=== PATIENT | female | born 1970 | race Caucasian/White ===

== ENCOUNTER 2019-04-22 11:40 | Outpatient (RCR) | payer MEDICAID, SELFPAY ==
--- NOTE | 2019-04-22 12:53 | HP.PTEVAL ---
Patient's Visit Information MACARIO LOMBARDI is a 49 year old F referred to Physical Therapy by Marylu York MD with a diagnosis of Balance issues.. Date of Evaluation: 04/22/19 Physical Therapist: Murali Hidalgo DPT, OCS, CSCS - Visit Plan Frequency: 2x /Week Duration: 4-6 Weeks Plan: 2x/week for 4-6 weeks for... 1. stretch HS, gastroc, quads and progress to I HEP. 2. Strength to all LE muscle s with motor control coordination challenges. Progress to HEP. 3. Gait and balance exercises emphasizing safety. Emphasize use of walker for safety. Monitor doctors testing for reason for her deficits. POSTURE. Etiology of her problems is unknown at this point, neuro vs muscular problems. - Subjective Findings: Legs and back not feeling good. Have not since was a kid. Legs turn to [place]. She went to [facility] on her own. Does not have family doctor. Has had testing adn treatment over the years for legs turn to jello and legs burn up to back. Has had back surgery 5 yrs ago describing fusion. It may have heped a little bit. Pain is in different area into shoulder adn LB. Pain is 10/10 if vaccuming as she has to take care of a numbe rof people at home including a chema GLORIA. Fell out of tub last weekend and that hurt her back. Legs would not doing what she wanted them to do. No pattern to her legs not doing what she wants, usually if she stands suddenly or is up too long. Uses walker much of time. Uses it away from home which she does not do much. Needs cart at grocery store. Usesit at home. Has one with wheels but doesnt feel safe using it out and about. Sleep is not great but that is normal for her. This hurts her back. Sleeps in hopsital bed slightly elevated. Not employed. Takes care of family. Cleans house alot and needs to take frequent breaks. as small house. Basic ADLs are OK other than obvious balance /LE problems. helps with shoes some times. Tingling in legs and toes intermittent without pattern. - Pain LBP Pain Intensity (Out of 10): 7 Pain Intensity Range: 0, 10 Comment: very few good days - Objective Pt ambulate with standard walker mod I, small steps adn slow with poor confidence but Mod I. Does not like wh walker. Without walker can do small 6 inch steps withotu a lot of weight shift adn really dysfucntional. Recommended 100% compliance with walker. Trasnfer with UE out of chair. Steps not toested today. Very painful with bed transfer today but can do it slow and I. UE AROM WFL and reciprocal lap tap is OK. LE aROM is ppor, -50 90/90 test HS flex. Pain in HS and gastroc with stretch of that area, -10 Active and neutral passive DF B. reflexes 1/3 patella and 0/3 achilles B. No clonus. Poor motor control in ankles and knees with hard contractions initially but then it gives in HS, quads, DF. DF strength 3-, Unable to heel raise, inv and ev 3+. knee felxion strength is 3- adn quads 3- as she gets a firm contraction but cannot hold it. 3/5 hip abduction and extension strength. 4- adduction. Again, not great motor control with the hip movements and contractions. Sensation seems diminished to gross light touch in the LE distally past 1/[address] down shins. Poor mtoor control on heel to ramos test adn reciprocal toe tapping. able to SLS only for a few seconds but noticable ankle corrections, poor confidence in LE holding her up seem to be limiting factor. - Balance Scores Functional Gait Assessment Score: 7 % Disability: 76.6700 - Goals Goal 1:: Patient I in appropriate HEP for LE muscle contractions, weight shifts and balance without increased pain. Goal Time Frame: 2-4 Weeks Goal 2:: Patient feel 25% improved in control and confidence of ambulatig with LE Goal Time Frame: 4-6 Weeks Goal 3:: FGA at to diminish fall risk. Goal Time Frame: 4-6 Weeks - Rehabilitation Potential Physical Therapy Diagnosis: Motor issues in LE effecting balance and mobility. Rehabilitation Potential: Questionable - Anticipated Interventions Patient/Client Instruction: Educate patient on: Condition, Plan of Care For the Purpose of:: To improve muscle performance and motor function Therapeutic Exercise to Include: Strength training, Postural training, Flexibilty training, Gait and locomotor training, Passive ROM, Active ROM For the Purpose of:: To improve muscle performance and motor function, To increase tolerance to activity/condition/position Thank you for the opportunity to evaluate your patient. For Medicare and Medicare HMO plans, please review the plan of care and approve it. It will need to be FAXED BACK to us at [phone] for Medicare purposes. For Medicare only, by signing this I certify the plan of care. Please let me know if there are questions or concerns regarding this plan of care. Physician Signature: Date:
--- NOTE | 2019-06-13 16:48 | HP.PT.NRP ---
HP - Discharge Summary (1) - Patient Information MACARIO LOMBARDI was seen in my office for initial evaluation on 04/22/19. The following Plan of Care was established for this patient: Initial Frequency: 2x /Week Initial Duration: 4-6 Weeks - Anticipated Interventions Patient/Client Instruction: Educate patient on: Condition, Plan of Care For the Purpose of:: To improve muscle performance and motor function Therapeutic Exercise to Include: Strength training, Postural training, Flexibilty training, Gait and locomotor training, Passive ROM, Active ROM For the Purpose of:: To improve muscle performance and motor function, To increase tolerance to activity/condition/position This patient was last seen in our office 04/22/19. Pertinent comments regarding their Physical therapy will appear below: Pt seen for initial evaluation adn POC established. She has not scheduled or attended any visits and it has been over 50 days, I will discotninue due to nonattendance. At this point I will be discontinuing this patient from physical therapy. I would be happy to see this patient again in the future if found appropriate by the physician. Thank you! Murali Hidalgo, DPT, OCS, CSCS
== END 2019-04-22 19:00 | disposition home or self-care (01) ==
LOC: PT 11:40
PROVIDERS: Referring Provider Psychiatry & Neurology Neurology; Visit Provider Psychiatry & Neurology Neurology
DX: R26.89 Other abnormalities of gait and mobility (principal)
CPT/HCPCS: 97162

== ENCOUNTER 2021-08-31 10:38 | Outpatient (CLI) | payer MEDICAID, SELFPAY ==
--- NOTE | 2021-08-31 10:30 | MRI_ITS ---
Abdominal MRI and MRCP 08/31/2021 11:10 AM COMPARISON: None CLINICAL HISTORY: ACUTE RECURRENT PANCREATITIS TECHNIQUE: Multiplanar T1 and T2 weighted, diffusion and dynamic post-gadolinium images were obtained through the abdomen. In addition, MRCP was performed. 3-D postprocessing images were reviewed. FINDINGS: Liver: Unremarkable Gallbladder: Surgically absent. Bile Ducts: Dilatation of the common bile duct, common hepatic duct and central intrahepatic biliary ducts, most likely due to reservoir effect status post cholecystectomy.. Pancreas: Unremarkable. No dilatation of the main pancreatic duct. Spleen: Unremarkable Adrenal Glands: Unremarkable Kidneys: Scattered T2 hyperintense renal cysts. GI Tract: Unremarkable Lymphadenopathy: Absent Ascites: Absent Bones: No suspicious lesions MRI/MRCP Abdomen without Contrast IMPRESSION: Unremarkable MRI and MRCP of the abdomen. Electronically Signed: Avila Matson MD at 18:53 EST ,
[2021-08-31 11:19] LABS: Absolute Lymphocyte Count 2.83 X10^3/uL (0.83-4.51); Absolute Neutrophil Count 3.6 X10^3/uL (2.0-7.7); Basophil# 0.02 X10^3/uL; Basophil% 0.3 % (0-1); Eosinophils% 1.5 % (0-5); Hematocrit 40.4 % (37-47); Hemoglobin 14.1 g/dL (12.0-15.0); Lymphocyte # 2.83 X10^3/ul (0.83-4.51); Lymphocyte % 41.2 % (19-41); Mean Corp Hgb Conc 34.9 g/dL (32-36); Mean Corpuscular Hgb 34.2 pg (27.0-32.0); Mean Corpuscular Volume 98.1 fL (81-99); Mean Platelet Vol. 8.8 fl (6.2-12.0); Monocyte# 0.28 X10^3/uL; Monocyte% 4.1 % (0-10); NRBC Flagged by Analyzer 0 % (0-5); Neutrophil # 3.62 X10^3/uL (2.7-7.7); Neutrophil % 52.6 % (47-70); Platelet Count 410 K/mm3 (150-450); RBC Distribution Width CV 13.7 % (11.6-14.6); RBC Distribution Width SD 50.1 fl (35.1-43.9); Red Blood Count 4.12 M/mm3 (4.2-5.4); White Blood Count 6.9 K/mm3 (4.4-11.0)
[2021-08-31 11:46] LABS: Amylase 31 U/L (25-115); CRP < 2.90 mg/L (0.0-3.0); Lipase 29 U/L (73-393)
[2021-09-01 16:11] LABS: Anti-Centromere B Ab <0.2 AI (0.0-0.9); Anti-Chromatin <0.2 AI (0.0-0.9); Anti-Jo <0.2 AI (0.0-0.9); Anti-Scleroderma-70 AB <0.2 AI (0.0-0.9); RNP Ab <0.2 AI (0.0-0.9); SJOGREN'S Anti-SS-A test < 0.2 AI (0.0-0.9); SJOGREN'S Anti-SS-B test < 0.2 AI (0.0-0.9); Smith Ab <0.2 AI (0.0-0.9)
[2021-09-01 18:13] LABS: Anti-dsDNA Ab 2 IU/mL (0-9)
[2021-09-04 06:08] LABS: Albumin 3.6 g/dL (2.9-4.4); Alpha-1-Globulins 0.2 g/dL (0.0-0.4); Alpha-2-Globulins 1.1 g/dL (0.4-1.0); Cytoplasmic Ab (C-ANCA) <1:20 titer (Neg:<1:20); Endomysial Antibody IgA Negative (Negative); Gamma Globulin 0.9 g/dL (0.4-1.8); IgG, Quant 854 mg/dL (586-1602); Immunoglobulin A 221 mg/dL (87-352); Immunoglobulin G, Subclass 1 442 mg/dL (248-810); Immunoglobulin G, Subclass 2 192 mg/dL (130-555); Immunoglobulin G, Subclass 3 102 mg/dL (15-102); Immunoglobulin G, Subclass 4 85 mg/dL (2-96); Immunoglobulin M 71 mg/dL (26-217); PROEL- TOTAL PROTEIN 6.9 g/dL (6.0-8.5)
[2021-09-04 09:49] LABS: Immunoglobulin E 102 IU/mL (6-495); Perinuclear Ab (P-ANCA) <1:20 titer (Neg:<1:20); t-Transglutaminase IgA <2 U/mL (0-3)
== END 2021-08-31 23:59 | disposition home or self-care (01) ==
LOC: MRI 10:39
PROVIDERS: PCP Nurse Practitioner Family; Referring Provider Internal Medicine Gastroenterology; Visit Provider Internal Medicine Gastroenterology
DX: K85.90 Acute pancreatitis without necrosis or infection, unspecified (principal)
CPT/HCPCS: 36415; 74181; 82150; 82784; 82785; 82787; 83516; 83690; 84165; 85025; 86140; 86225; 86235; 86255; 86256; 86334

== ENCOUNTER 2021-09-10 09:02 | Outpatient (CLI) | payer MEDICAID, SELFPAY ==
--- NOTE | 2021-09-10 09:04 | RAD_ITS ---
PROCEDURE: Upper GI with Small Bowel Follow Through DATE OF EXAMINATION: 09/10/2021.. INDICATION: Female, 51 years old. History of gastroparesis. FLUOROSCOPY TIME (if supplied): (0:45) minutes/seconds. 18 images were obtained. TECHNIQUE: Radiographic and fluoroscopic images of the distal esophagus, stomach, and entire small intestine were obtained following the oral ingestion of barium. COMPARISON: None. FINDINGS: The vessel liner film of the abdomen demonstrates a normal bowel gas pattern. Large amount of fecal material is seen throughout the colon. There are no abnormal calcifications or organomegaly demonstrated. The patient is status post laminectomy and fusion at the L5-S1 level. The esophagus is unremarkable. No evidence of obstruction. No gastroesophageal reflux is seen. The stomach and duodenum are unremarkable. A single contrast small bowel follow through exam demonstrates the small bowel to have no evidence for stricture, ulceration or mass. The transit time is normal at 60 minutes. RAD/Upper GI/w Small Bowel IMPRESSION: 1. Normal air contrast contrast upper GI and small bowel follow-through exam. Electronically Signed: Sunday Yen MD at 8:26 EST ,
== END 2021-09-10 23:59 | disposition home or self-care (01) ==
LOC: RAD 09:03
PROVIDERS: PCP Nurse Practitioner Family; Referring Provider Internal Medicine Gastroenterology; Visit Provider Internal Medicine Gastroenterology
DX: K31.84 Gastroparesis (principal); K85.90 Acute pancreatitis without necrosis or infection, unspecified
CPT/HCPCS: 74246; 74248

== ENCOUNTER 2021-09-21 09:51 | Outpatient (CLI) | payer MEDICAID, SELFPAY ==
--- NOTE | 2021-09-21 09:57 | NM_ITS ---
CLINICAL: 51-year-old female with reported history of abdominal pain and clinical gastroparesis. SEMI-SOLID PHASE 99m Tc SULFUR COLLOID GASTRIC EMPTYING STUDY COMPARISON: Upper gastrointestinal series with small bowel follow-through report 09/10/2021, MRI of the abdomen report 08/31/2021 FINDINGS: The patient was administered 1.1 mCi of 99m Tc sulfur colloid mixed with oatmeal and consumed per os. Image acquisitions in the anterior-posterior projections were obtained for a total of 60 minutes. There is prompt visualization of the stomach, with no gastroesophageal reflux identified. Minimal emptying is defined with the T ? emptying not calculable, (Normal: 12-56 minutes). There is 10% emptying noted at 60 minutes following meal completion. NM/Gastric Emptying Study IMPRESSION: 1. ABNORMAL 99m Tc sulfur colloid semi-solid phase (oatmeal) gastric emptying imaging examination. A. There is severe delayed semi-solid phase gastric emptying compared to normal controls. (Lizeth et al, J Nucl Med Tech 38: 186, 2010). Electronically Signed: Geoffrey Worrell DO at 7:41 EDT ,
== END 2021-09-21 23:59 | disposition home or self-care (01) ==
LOC: NM 09:52
PROVIDERS: PCP Nurse Practitioner Family; Referring Provider Internal Medicine Gastroenterology; Visit Provider Internal Medicine Gastroenterology
DX: K31.84 Gastroparesis (principal); K85.90 Acute pancreatitis without necrosis or infection, unspecified
CPT/HCPCS: 78264; A9541

== ENCOUNTER 2021-09-24 10:14 | Day surgery (SDC) | payer MEDICAID, SELFPAY ==
[2021-09-24] VITALS (7 sets, daily range): BP systolic 93–105; BP diastolic 38–75; PULSE 88–105; RESP 16–18; TEMP 36.1–37.4; O2SAT 93–99; BMI 22.8
[2021-09-24] MEDS: Lactated Ringers 1,000 ML 15 ML IV (10:53)
--- NOTE | 2021-09-24 11:20 | RAD_ITS ---
STUDY: FLUOROSCOPIC ERCP biliary ductal system REASON FOR EXAM: Female, 51 years old. PAIN RADIATION DOSAGE: Not provided. Please see intraoperative report. FLUOROSCOPY TIME (if supplied): ( 2 minutes 56 seconds ) TECHNIQUE: 14 fluoroscopic images from intraoperative ERCP were obtained and submitted for interpretation. COMPARISON: Gallbladder MRI from 08/31/2021 FINDINGS: 14 fluoroscopic images from intraoperative ERCP submitted for interpretation. A catheter over guidewire appears to have been placed. Contrast is injected demonstrating dilated extra and intrahepatic ductal system. There are a few filling defects within the common bile duct which could relate to air bubbles or stones. A biliary stent is then placed and appears to be appropriate position. RAD/ERCP Biliary Only IMPRESSION: As above. Please see intraoperative report for further details. Electronically Signed: Pedro Bourne, at 13:28 EDT ,
--- NOTE | 2021-09-24 11:31 | HP.PCM_ITS ---
History and Physical Date of Admission: 09/24/21 This51 F who presents to the office today for evaluation of abdominal pain. she presented to [place] ED for evaluation of back and abdomen pain. Found she has delayed gastric emptying and multiple pancreatic cysts. She was transferred to [place] for admission; EGD performed for possible blockage without finding of blockage, just delayed emptying. Presented to [place] ED again 08.09.21 for back and abdomen symptoms. NG tube placed for decompression/drainage ?one full suction cup?. Reports that typical meals are very small and infrequent during the day. She drinks high protein Boost as a supplement. Reports weight loss in the last year. Regularly feels full and bloated with occasional constipation (stool softeners taken with mixed results). US RUQ 07.11.21 found common duct dilated up to 1.2cm. Otherwise without remark. CTA abd/pel 08.09.21 found CBD measuring 1.5cm. Stomach distended and fluid filled. 08.09.21 AST 299, ALT 135, alk phos 286, albumin 2.5 History of cholecystectomy. ROS Const Constitutional: No anorexia, fatigue, fever(s), weight change or sleep problems Eyes Eyes: No change in vision ENT ENT: No abnormal hearing, difficulty swallowing, mouth lesions, tongue swelling or throat swelling Resp Respiratory: No cough or shortness of breath Cardio Cardiology: No chest pain at rest, chest pain with exertion, shortness of breath or dyspnea on exertion Gastro GI: No difficulty swallowing Genitourinary-Female: No difficulty urinating or burning urination Musc Musculoskeletal: No joint pain, joint swelling, muscle weakness or decreased muscle mass Skin Skin: No hair loss in leg, yellowing of the eye, itchy eyes, rash, skin ulcer or skin swelling Neuro Neurology: No abnormal hearing, abnormal movements, confusion, unsteady gait/balance or memory loss Psych Psychiatric: No anxiety, No confusion and No memory loss Endo Endocrine: No fatigue or weight change Aller/Imm Allergy/Immunologic: No itchy eyes, throat swelling or tongue swelling Tank/Lymp Hematologic/Lymphatic: No easy bleeding, easy bruising or enlarged lymph nodes Exam Const General: cooperative and comfortable Nutritional Appearance: average body habitus and well nourished HENMT Head: normal to inspection Ears: hearing grossly normal bilaterally Nose: external nose normal Face and sinus: normal facial exam Mouth: oral mucosae normal Throat: posterior oropharynx normal Eyes General: appearance normal, both eyes and all related structures Neck Neck: normal visual inspection Chest Chest palpation & inspection: normal inspection of the chest and normal palpation of entire chest wall Resp Effort & Inspection: normal respiratory effort Auscultation: Bilateral: Clear to Auscultation Cardio Palpation: normal PMI Rate: regular rate Rhythm: regular rhythm GI Inspection: normal to inspection Auscultation: normal bowel sounds Percussion: normal to percussion Palpation: no hepatosplenomegaly Skin General: no rashes or lesions noted Neuro General: patient alert Extrem General: normal to inspection Psych Affect: normal affect Assessment and Plan Assessment and Plan (1) Pancreatitis: Status: Acute Orders: Orders: CRP 08/19/21 CBC W/Diff, Automated 08/19/21 ANCA 08/19/21 Celiac Disease Profile 08/19/21 IgG Subclasses 08/19/21 Immunoglobulin A 08/19/21 Immunoglobulin E 08/19/21 Immunoglobulin G 08/19/21 Immunoglobulin M 08/19/21 REJI + Protein Elect, Serum 08/19/21 Miscellaneous Lab Procedure 08/19/21 Amylase 08/19/21 Lipase 08/19/21 MRCP Abdomen without Contrast 08/19/21 Gastric Emptying Study 08/19/21 Upper GI/w Small Bowel 08/19/21 Plan - Dr. Ferguson Friend, DO: She should undergo an MRCP and ERCP for evaluation of her hepatobiliary system. I cannot tell if this is stasis in the duodenum that is causing a gastric outlet obstruction, pancreatitis and increased liver function test. We will also get a biochemical work-up to look for diseases such as autoimmune pancreatitis. We may need is crystal study to see if she is producing crystals in the common bile duct and would benefit from a sphincterotomy. We will check an amylase lipase. We will also get a gastric emptying study and an upper GI with small bowel follow-through. I will give her low-dose Reglan therapy. If she has improvement with the Reglan therapy we may not need the gastric emptying study. (2) Gastroparesis: Status: Acute Orders: Orders: Gastric Emptying Study 08/19/21 Upper GI/w Small Bowel 08/19/21 Plan Details Other Medications: New: metoclopramide HCl (Reglan) administer 30 minutes before meals 5 mg PO .qid 30 days 120 tabs 0RF I have re-examined the patient. There are no clinical changes since date of exam.
--- NOTE | 2021-09-24 12:21 | OP.ERCP_ITS ---
Patient Name: Flory Romano Procedure Date: 09/24/2021 11:27 AM Date of : 1970 Age: 51 Procedure: ERCP Indications: Common bile duct stone(s), Unexplained acute pancreatitis Providers: Marty Morel DO Medicines: General Anesthesia Patient Profile: This is a 51 year old female. Refer to note in patient chart for documentation of history and physical. Patient has symptoms of acute right upper quadrant abdominal pain and chronic epigastric abdominal pain. This patient has no history of previous ERCP. Complications: No immediate complications. Procedure: Pre-Anesthesia Assessment: - Prior to the procedure, a History and Physical was performed, and patient medications and allergies were reviewed. The patient is competent. The risks and benefits of the procedure and the sedation options and risks were discussed with the patient. All questions were answered and informed consent was obtained. Patient identification and proposed procedure were verified by the physician in the pre-procedure area. Mental Status Examination: alert and oriented. Airway Examination: normal oropharyngeal airway and neck mobility. Respiratory Examination: clear to auscultation. CV Examination: normal. Prophylactic Antibiotics: The patient does not require prophylactic antibiotics. Prior Anticoagulants: The patient has taken no previous anticoagulant or antiplatelet agents. ASA Grade Assessment: II - A patient with mild systemic disease. After reviewing the risks and benefits, the patient was deemed in satisfactory condition to undergo the procedure. The anesthesia plan was to use moderate sedation / analgesia (conscious sedation). Immediately prior to administration of medications, the patient was re-assessed for adequacy to receive sedatives. The heart rate, respiratory rate, oxygen saturations, blood pressure, adequacy of pulmonary ventilation, and response to care were monitored throughout the procedure. The physical status of the patient was re-assessed after the procedure. After obtaining informed consent, the scope was passed under direct vision. Throughout the procedure, the patient's blood pressure, pulse, and oxygen saturations were monitored continuously. The duodenoscope was introduced through the mouth, and advanced to the duodenum and used to inject contrast into the bile duct. The ERCP was accomplished without difficulty. The patient tolerated the procedure well. Moderate Sedation: Moderate (conscious) sedation was personally administered by an anesthesia professional. The following parameters were monitored: oxygen saturation, heart rate, blood pressure, and response to care. Total physician intraservice time was 15 minutes. Scope In: 11:42:03 AM Scope Out: 12:06:00 PM Total Procedure Duration Time 0 hours 23 minutes 57 seconds Findings: The cavalry scout film was normal. The esophagus was successfully intubated under direct vision. The scope was advanced to a normal major papilla in the descending duodenum without detailed examination of the pharynx, larynx and associated structures, and upper GI tract. The upper GI tract was grossly normal. The bile duct was deeply cannulated with the short-nosed traction sphincterotome. Contrast was injected. I personally interpreted the bile duct images. There was brisk flow of contrast through the ducts. Image quality was adequate. Contrast extended to the entire biliary tree. Opacification of the main bile duct was successful. The maximum diameter of the ducts was 10 mm. The lower third of the main bile duct contained two stones, the largest of which was 5 mm in diameter. The main bile duct was diffusely dilated, uncertain significance. The largest diameter was 10 mm. A straight Roadrunner wire was passed into the biliary tree. A 5 mm biliary sphincterotomy was made with a traction (standard) sphincterotome using ERBE electrocautery. There was no post-sphincterotomy bleeding. The biliary tree was swept with a 15 mm balloon starting at the bifurcation. Sludge was swept from the duct. All stones were removed. Dilation of the common bile duct with a 6-7-8 mm balloon dilator was successful. One 10 Fr by 7 cm temporary stent with two external flaps and two internal flaps was placed 5 cm into the common bile duct. Bile flowed through the stent. The stent was in good position. The biliary tree was swept with a 15 mm balloon starting at the bifurcation. Debris was swept from the duct. Impression: - The entire main bile duct was dilated, uncertain significance. - Choledocholithiasis was found. Complete removal was accomplished by biliary sphincterotomy and balloon extraction. - A biliary sphincterotomy was performed. - The biliary tree was swept. Procedure Code(s): --- Professional --- 40935, Endoscopic retrograde cholangiopancreatography (ERCP); with placement of endoscopic stent into biliary or pancreatic duct, including pre- and post-dilation and guide wire passage, when performed, including sphincterotomy, when performed, each stent [id number], Endoscopic retrograde cholangiopancreatography (ERCP); with removal of calculi/debris from biliary/pancreatic duct(s) 04867, Endoscopic catheterization of the biliary ductal system, radiological supervision and interpretation CPT copyright 2017 [employer]. All rights reserved. The codes documented in this report are preliminary and upon deputy harbormaster review may be revised to meet current compliance requirements. Marty Morel DO 09/24/2021 12:20:03 PM This report has been signed electronically. Number of Addenda: 0 Note Initiated On: 09/24/2021 11:27 AM
--- NOTE | 2021-09-24 12:21 | OP.CCLET_ITS ---
09/24/2021 Kelley Vanessa Re : ERCP procedure for Flory Romano Dear Rusty This procedure was performed on Friday, September 24, 2021. My impressions and recommendations are as follows: Impressions : - The entire main bile duct was dilated, uncertain significance. - Choledocholithiasis was found. Complete removal was accomplished by biliary sphincterotomy and balloon extraction. - A biliary sphincterotomy was performed. - The biliary tree was swept. Recommendations : My findings are described in the full procedure note, which is enclosed. If I can be of further assistance, please feel free to contact me at . Sincerely, Marty Morel, 09/24/2021 12:20:03 PM This report has been signed electronically.
== END 2021-09-24 23:59 | disposition home or self-care (01) ==
LOC: EN 10:15 → AC 10:17
PROVIDERS: PCP Nurse Practitioner Family; Referring Provider Nurse Practitioner Family; Visit Provider Internal Medicine Gastroenterology
PROC: (CPT 43260; principal; 2021-09-24 11:00)
DX: K80.50 Calculus of bile duct without cholangitis or cholecystitis without obstruction (principal); K85.90 Acute pancreatitis without necrosis or infection, unspecified; K86.2 Cyst of pancreas; K30 Functional dyspepsia; K21.9 Gastro-esophageal reflux disease without esophagitis; M19.90 Unspecified osteoarthritis, unspecified site; Z78.0 Asymptomatic menopausal state; Z79.899 Other long term (current) drug therapy
CPT/HCPCS: 43264; 43274; 74328; 76000; 87426; J7120; C1769; J2405

== ENCOUNTER 2022-01-12 08:35 | Day surgery (SDC) | payer MEDICAID, SELFPAY ==
[2022-01-12] VITALS (9 sets, daily range): BP systolic 94–105; BP diastolic 60–76; PULSE 89–100; RESP 16–18; TEMP 36.4–37; O2SAT 95–100; BMI 22.1
[2022-01-12] MEDS: Lactated Ringers 1,000 ML 15 ML IV (09:05)
--- NOTE | 2022-01-12 09:28 | HP.PCM_ITS ---
History and Physical Date of Admission: 01/12/22 MACARIO LOMBARDI, is a 51 F who presents to the office today for f/u ERCP done on 09/24/21. Stones and sludge were removed from the CBD, stent placed. No improvement at all in her symptoms; still can't eat much--she gets bloating and pain in left lower/left mid abd that radiates to the back when she eats anything. The only thing that helps the pain is to not eat. Dips a spoon in yogurt, eats that slowly. Some nausea. She vomited twice in past week while trying to eat. Constipation -- BM every other day, some straining, feeling like doesn't evacuate. Failed at least 2 weeks each of miralax and senna and stool softener. Tried sample of linzess 145 mcg which helped her bowels move better. she presented to [facility] for evaluation of back and abdomen pain. Found she has delayed gastric emptying and multiple pancreatic cysts. She was transferred to [place] for admission; EGD performed for possible blockage without finding of blockage, just delayed emptying. Presented to [facility] again 08.09.21 for back and abdomen symptoms. NG tube placed for decompression/drainage ?one full suction cup?. She has lost more than 40 lbs. Reports her symptoms began 3 yrs ago. US RUQ .08.31 found common duct dilated up to 1.2cm. Otherwise without remark. CTA abd/pel 08.09.21 found CBD measuring 1.5cm. Stomach distended and fluid filled. 08.09.21 AST 299, ALT 135, alk phos 286, albumin 2.5 History of cholecystectomy. Upper GI/w Small Bowel 09/10/21 IMPRESSION: 1. Normal air contrast contrast upper GI and small bowel follow-through exam. ? Gastric Emptying Study 09/21/21 IMPRESSION: 1. ABNORMAL 99m Tc sulfur colloid semi-solid phase (oatmeal) gastric emptying imaging examination. ? A.? There is severe delayed semi-solid phase gastric emptying compared to normal controls.? (Lizeth kelly al, J Nucl Med Tech? 38: 186, 2010). ? 09/24/21 ERCP Impression: ? - The entire main bile duct was dilated, ? uncertain significance. ? - Choledocholithiasis was found. Complete ? removal was accomplished by biliary ? sphincterotomy and balloon extraction. ? - A biliary sphincterotomy was performed. ? - The biliary tree was swept. ROS Const Constitutional: Positive for fatigue and headache(s) ENT ENT: Positive for headache(s); No difficulty swallowing Gastro GI: Positive for abdominal pain, heartburn, excessive flatus and nausea/dyspeps ia; No belching, bloating, change in bowel habits, change in stool character, coffee ground emesis, constipation, cramping, diarrhea, difficulty swallowing, feeling full early, incontinent of stools, Vomiting blood/hematemesis, Blood in stool, loose stools, Black,tarry stools, pain with swallowing, vomiting or other Musc Musculoskeletal: Positive for joint pain, back pain, muscle cramps, muscle weakness and leg pain at night Skin Skin: No yellowing of the eye or itchy eyes Neuro Neurology: Positive for headache(s) Psych Psychiatric: No anxiety and No depression Endo Endocrine: Positive for fatigue and increased hunger Aller/Imm Allergy/Immunologic: No itchy eyes Tank/Lymp Hematologic/Lymphatic: Positive for easy bruising; No easy bleeding Exam Const General: cooperative, anxious and ill appearing chronically GI Inspection: distended Palpation: soft and tender in the LLQ Quality Reporting Tobacco Screening ([facility] 138) Smoking Status: Current some day smoker Assessment and Plan Assessment and Plan (1) Gastroparesis: ?Status:?Acute (2) Pancreatitis: ?Status:?Acute (3) Chronic idiopathic constipation: ?Status:?Chronic ?Plan - Macario Escalera NP, FUNCTIONAL SUPPORT ANALYST-C: 51 yr old female s/p ERCP--biliary sphincterotomy, balloon extraction, removal of choledocholithiasis, biliary tree swept. She has gastroparesis. Her postprandial bloating and LLQ abd pain persist. Currently taking metoclopramide 5 mg QID w/o adverse effects, will increase to 10 mg TID; reviewed risk of tardive dyskinesia. Rx azithromycin to help with gastric emptying. Will try for prior approval of linzess. I'll review case with Dr Maria Teresa. Pt is scheduled for removal of biliary stent at end of December, she will have f/u 2 wks after that procedure. Plan Details Other Medications: ?New: ? azithromycin 250 mg? PO DAILY 14 days 14 tabs 0RF ? ? ? metoclopramide HCl 10 mg? PO QAC 30 tabs 0RF ? ? I have re-examined the patient. There are no clinical changes since date of exam.
--- NOTE | 2022-01-12 10:43 | RAD_ITS ---
STUDY: ERCP REASON FOR EXAM: Female, 52 years old. PAIN FLUOROSCOPY TIME (if supplied): ( 95.5 seconds ) minutes/seconds. 15 images were obtained. TECHNIQUE: An ERCP was performed by the pharmacy coordinator. Imaging was provided. COMPARISON: None. FINDINGS: The biliary stent has been removed. There is mild dilatation of the common bile duct. A balloon catheter was passed within the common bile duct. RAD/ERCP Biliary Only IMPRESSION: , Mild at stent removal and balloon passage of the common bile duct. Electronically Signed: Sunday Yen MD at 11:55 EDT ,
--- NOTE | 2022-01-12 11:08 | OP.CCLET_ITS ---
01/12/2022 Kelley Vanessa Re : ERCP procedure for Flory Romano Dear Rusty This procedure was performed on Wednesday, January 12, 2022. My impressions and recommendations are as follows: Impressions : - The entire main bile duct was dilated, secondary to a stricture. - Choledocholithiasis was found. Complete removal was accomplished by biliary sphincterotomy and balloon extraction. - A biliary sphincterotomy was performed. - The biliary tree was swept. - One stent was removed from the biliary tree. Recommendations : My findings are described in the full procedure note, which is enclosed. If I can be of further assistance, please feel free to contact me at . Sincerely, Marty Morel, 01/12/2022 11:07:41 AM This report has been signed electronically.
--- NOTE | 2022-01-12 11:08 | OP.ERCP_ITS ---
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 Refer to note in patient chart for documentation of history and physical. Patient has symptoms of chronic abdominal cramping and chronic epigastric abdominal pain. She is status post ERCP for biliary evaluation within the past three months. She is status post laparoscopic cholecystectomy within the past six months. Complications: No immediate complications. Procedure: Pre-Anesthesia Assessment: - Prior to the procedure, a History and Physical was performed, and patient medications and allergies were reviewed. The risks and benefits of the procedure and the sedation options and risks were discussed with the patient. All questions were answered and informed consent was obtained. Patient identification and proposed procedure were verified by the physician in the pre-procedure area. Mental Status Examination: alert and oriented. Airway Examination: normal oropharyngeal airway and neck mobility. Respiratory Examination: clear to auscultation. CV Examination: normal. Prophylactic Antibiotics: The patient does not require prophylactic antibiotics. Prior Anticoagulants: The patient has taken no previous anticoagulant or antiplatelet agents. ASA Grade Assessment: II - A patient with mild systemic disease. After reviewing the risks and benefits, the patient was deemed in satisfactory condition to undergo the procedure. The anesthesia plan was to use moderate sedation / analgesia (conscious sedation). Immediately prior to administration of medications, the patient was re-assessed for adequacy to receive sedatives. The heart rate, respiratory rate, oxygen saturations, blood pressure, adequacy of pulmonary ventilation, and response to care were monitored throughout the procedure. The physical status of the patient was re-assessed after the procedure. After obtaining informed consent, the scope was passed under direct vision. Throughout the procedure, the patient's blood pressure, pulse, and oxygen saturations were monitored continuously. The duodenoscope was introduced through the mouth, and advanced to the duodenum and used to inject contrast into the bile duct. The ERCP was accomplished without difficulty. The patient tolerated the procedure well. Scope In: 10:46:06 AM Scope Out: 10:58:57 AM Total Procedure Duration Time 0 hours 12 minutes 51 seconds Findings: The nutrition services manager film was normal. The esophagus was successfully intubated under direct vision. The scope was advanced to a normal major papilla in the descending duodenum without detailed examination of the pharynx, larynx and associated structures, and upper GI tract. The upper GI tract was grossly normal. The bile duct was deeply cannulated. Contrast was injected. I personally interpreted the bile duct images. There was brisk flow of contrast through the ducts. Opacification of the lower third of the main bile duct was successful. The maximum diameter of the ducts was 10 mm. The lower third of the main bile duct contained one stone, which was 6 mm in diameter. The main bile duct was diffusely dilated, secondary to a stricture. The largest diameter was 10 mm. A straight Roadrunner wire was passed into the biliary tree. A 5 mm biliary sphincterotomy was made with a traction (standard) sphincterotome using ERBE electrocautery. Moderate bleeding from the sphincterotomy stopped within 5 minutes. The biliary tree was swept with a 15 mm balloon starting at the bifurcation. Sludge was swept from the duct. All stones were removed. One stent was removed from the biliary tree using a snare. The stent was found to be occluded via the water column test. Impression: - The entire main bile duct was dilated, secondary to a stricture. - Choledocholithiasis was found. Complete removal was accomplished by biliary sphincterotomy and balloon extraction. - A biliary sphincterotomy was performed. - The biliary tree was swept. - One stent was removed from the biliary tree. Procedure Code(s): --- Professional --- 28666, Endoscopic retrograde cholangiopancreatography (ERCP); with removal of foreign body(s) or stent(s) from biliary/pancreatic duct(s) 01152, Endoscopic retrograde cholangiopancreatography (ERCP); with removal of calculi/debris from biliary/pancreatic duct(s) 03872, Endoscopic retrograde cholangiopancreatography (ERCP); with sphincterotomy/papillotomy 74808, 26, Endoscopic catheterization of the biliary ductal system, radiological supervision and interpretation CPT copyright 2017 [employer]. All rights reserved. The codes documented in this report are preliminary and upon tire molder review may be revised to meet current compliance requirements. Marty Morel DO 01/12/2022 11:07:41 AM This report has been signed electronically. Number of Addenda: 0 Note Initiated On: 01/12/2022 10:33 AM
== END 2022-01-12 12:51 | disposition home or self-care (01) ==
LOC: EN 08:35 → AC 08:36
PROVIDERS: PCP Nurse Practitioner Family; Referring Provider Nurse Practitioner Family; Visit Provider Internal Medicine Gastroenterology
PROC: (CPT 43260; principal; 2022-01-12 09:15)
DX: K80.51 Calculus of bile duct without cholangitis or cholecystitis with obstruction (principal); K83.8 Other specified diseases of biliary tract; K85.90 Acute pancreatitis without necrosis or infection, unspecified; K31.84 Gastroparesis; K59.04 Chronic idiopathic constipation; F17.200 Nicotine dependence, unspecified, uncomplicated; M19.90 Unspecified osteoarthritis, unspecified site; Z78.0 Asymptomatic menopausal state; Z79.899 Other long term (current) drug therapy
CPT/HCPCS: 43275; 43264; 43262; 74328; 76000; J7120; J2405